=== PATIENT | male | born 2005 | race Caucasian/White ===

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

== ENCOUNTER 2025-05-07 12:34 | Emergency (ER) | payer BC, MEDICAID ==
[2025-05-07 14:09] LABS: BASOPHILS ABSOLUTE AUTO 0.05 K/uL (0.00-0.20); BASOPHILS PERCENT AUTO 0.5 % (0.0-1.0); EOSINOPHILS ABSOLUTE AUTO 0.03 K/uL (0.00-0.45); EOSINOPHILS PERCENT AUTO 0.3 % (0.0-6.0); IMMATURE GRAN ABSOLUTE AUTO 0.02 K/uL (0.00-0.05); IMMATURE GRAN PERCENT AUTO 0.2 % (0.0-0.4); LYMPHOCYTES ABSOLUTE AUTO 0.65 K/uL (1.00-4.80); LYMPHOCYTES PERCENT AUTO 6.8 % (24.0-44.0); MEAN PLATELET VOLUME 10.1 fL (9.4-12.4); MONOCYTES ABSOLUTE AUTO 0.75 K/uL (0.00-0.80); MONOCYTES PERCENT AUTO 7.9 % (0.0-8.0); NEUTROPHILS ABSOLUTE AUTO 8.00 K/uL (1.80-7.70); NEUTROPHILS PERCENT AUTO 84.3 % (41.0-71.0); NRBC ABSOLUTE 0.00 K/uL (0.00-0.02); NRBC PERCENT 0.0 /100WBC (0.0-0.2); PLATELET COUNT,PLT 203 K/uL (150-400); RED BLOOD CELL COUNT 5.35 M/uL (4.52-5.90); WHITE BLOOD CELL COUNT,WBC 9.50 K/uL (3.9-11.3)
[2025-05-07] MEDS: Ondansetron 4 MG/2 ML SDV IVPUSH ONE (14:12)
[2025-05-07] MEDS: Ketorolac 30 MG/ML SDV IVPUSH ONE (14:12)
[2025-05-07 14:34] LABS: A/G RATIO 1.5 (0.9-1.6); ALANINE AMINOTRANSFERASE,ALT 11.0 IU/L (14-63); ASPARTATE AMNIOTRANSFERASE,AST 6.0 IU/L (15-37); BILIRUBIN TOTAL 0.5 mg/dL (0.2-1.0); BLOOD UREA NITROGEN,BUN 9.0 mg/dL (7.0-18.0); CARBON DIOXIDE,CO2 26.1 mmol/L (21.0-32.0); CHLORIDE,CL 107.0 mmol/L (98-107); CREATININE 1.0 mg/dL (0.8-1.3); EST CRCL DRUG DOSING (CG) 109.62 mL/min; ESTIMATED GFR 111.0 mL/min (>60); GLUCOSE RANDOM 87.0 mg/dL (74-106); POTASSIUM,K 3.9 mmol/L (3.5-5.1); PROTEIN TOTAL,TP 7.3 g/dL (6.4-8.2); SODIUM,NA 142.0 mmol/L (136-148)
[2025-05-07 15:16] LABS: APPEARANCE,URINE SLT CLOUDY; GLUCOSE,URINE NEGATIVE (NEGATIVE); OCCULT BLOOD,URINE LARGE (NEGATIVE)
[2025-05-07 15:26] LABS: EPITHELIAL CELLS,URINE RARE (NONE-FEW)
== END 2025-05-07 17:15 | disposition home or self-care (01) ==
LOC: MW.ED 12:34
DX: N13.2 Hydronephrosis with renal and ureteral calculous obstruction (principal); Z88.0 Allergy status to penicillin; Z88.8 Allergy status to other drugs, medicaments and biological substances; Z79.899 Other long term (current) drug therapy
CPT/HCPCS: 36415; 74176; 80053; 81001; 83690; 85025; 96361; 96374; 96375; 99284; A9270; J1885; J2405; J7030; 99283